=== PATIENT | female | born 1965 | race American Indian/Alaskan Native ===

== ENCOUNTER 2017-04-27 11:07 | Outpatient (CLI) | payer MEDICAID ==
--- NOTE | 2017-04-27 13:20 | Ultrasound Report ---
Left breast ultrasound: Patient with known untreated left breast cancer presenting with increased heaviness of her left breast. Previous exams are unavailable at this time. Whole breast ultrasound demonstrates 5 masses in the superior breast between 12 and 1:00. 2 of the masses contain echogenic centers consistent with lymph nodes but are significantly enlarged measuring 2.2 and 3.9 cm. 2 other masses measuring 2.4 and 1.8 cm are markedly hypoechoic but homogeneous. In the 1:00 location there is an inhomogeneously hypoechoic mass measuring 18 mm. The lateral portion of the breast appears diffusely edematous with marked thickening of the skin. In the 9:00 location there is a 9.6 cm lobulated echogenic mass with distal shadowing. Impressions: 1. The multiple masses in the superior breast are consistent with metastatic lymph nodes. 2. The 1:00 and 9:00 lesions may represent primary masses. 3. Extensive edema involving the lateral portion of the breast.
== END 2017-04-27 11:08 | disposition home or self-care (01) ==
LOC: US 11:07
PROVIDERS: ATTEND Internal Medicine Hematology & Oncology
DX: C50.912 Malignant neoplasm of unspecified site of left female breast (principal); M85.80 Other specified disorders of bone density and structure, unspecified site; R60.9 Edema, unspecified